=== PATIENT | male | born 1970 | race Caucasian/White ===

== ENCOUNTER 2017-03-07 19:56 | Emergency (ER) | payer SELFPAY ==
--- NOTE | ~2017-03-07 | CR109 ---
[facility] A Service of [facility] RADIOLOGY TEXT RESULTS PATIENT: HUSAM KEBEDE II LOCATION: SED : 66 UNIT #: [id number] AGE: [address]: JUANITA SCOTT SEX: M ORDER DR: [id number] [address] [address] [id number] E MR#: [id number] #: [id number] NAME: HUSAM KEBEDE II : 1970 SEX: M STUDY DATE/TIME: 03/07/2017 19:53 UNIT: SED ROOM: STUDY DESCRIPTION: CR Finger 2 View 2nd Rt Attending Physician: Juanita Scott Ordering Physician: Physician Non-Staff Primary Care Physician: Primary Care Physician No MEDICAL IMAGING REPORT This report is preliminary unless electronic signature is present. EXAM Right second finger. HISTORY Laceration between first and second finger. FINDINGS Three views of the second finger were obtained. There are two 1 mm radiodense foreign bodies that appear to be in or on the soft tissues between the second and third finger. They are seen on all three of the images. There is no bony injury identified. IMPRESSION 1. There is no bony injury visible. 2. There are two 1 mm radiodense foreign bodies in or on the soft tissue between the second and third digits. 1. Dictated by... Jerman Angela M.D. THIS IS AN ELECTRONICALLY VERIFIED REPORT Jerman Angela M.D. at 03/08/2017 2:00 PM Portia TD: 03/08/2017 09:02 JOB #: [id number] MEDICAL IMAGING REPORT Page 1 of 1
[~2017-03-07 19:56] MED LIST: NO MEDICATIONS
== END 2017-03-07 20:48 | disposition home or self-care (01) ==
LOC: SED 19:56
DX: S61.421A Laceration with foreign body of right hand, initial encounter (principal); Z23 Encounter for immunization; W22.8XXA Striking against or struck by other objects, initial encounter; Y92.009 Unspecified place in unspecified non-institutional (private) residence as the place of occurrence of the external cause
CPT/HCPCS: 73140; 90715; 99283

== ENCOUNTER 2017-03-20 13:54 | Emergency (ER) | payer SELFPAY | END 2017-03-20 15:08 | disposition home or self-care (01) | LOC: SED 13:54 | DX: L25.9 Unspecified contact dermatitis, unspecified cause (principal) | CPT/HCPCS: 99282 ==